=== PATIENT | male | born 1960 | race Caucasian/White ===

== ENCOUNTER 2016-04-14 12:30 | Emergency (ER) | payer BC ==
[2016-04-14 12:47] VITALS: RESP 18
--- NOTE | 2016-04-14 13:10 | ED ---
Dizziness HPI - General Chief Complaint: Dizziness Stated Complaint: Dizziness, lt arm numbness Time Seen by Provider: 04/14/16 13:00 Source: patient, RN notes reviewed Mode of arrival: ambulatory Limitations: no limitations - History of Present Illness Initial Comments: This is a 55-year-old male who states he had the onset yesterday of some dizziness which she got better and then came back. He states that happen with eye movement her head movements. He states he did ever recent ear infection he was treated with Zithromax ear drops and did have appears clean. He presents today with this continued dizziness and some tingling to his left forearm. He denies any focal weakness fevers chills nausea vomiting sweats or other symptoms. He has no history of stroke or head injury. No neck problems that he is aware of. MD Complaint: dizziness, lightheadedness - Related Data Previous Rx's Medication Instructions Recorded Meclizine [Antivert] 25 mg PO TID #20 tab 04/14/16 Allergies Allergy/AdvReac Type Severity Reaction Status Date / Time Penicillins AdvReac Rash/Hives Verified 04/14/16 14:11 Review of Systems ROS Statement: Those systems with pertinent positive or pertinent negative responses have been documented in the HPI. ROS Other: All systems not noted in ROS Statement are negative. Past Medical History Past Medical History: No Reported History History of Any Multi-Drug Resistant Organisms: None Reported Past Surgical History: No Surgical Hx Reported, Heart Catheterization Past Psychological History: No Psychological Hx Reported Smoking Status: Current some day smoker Past Alcohol Use History: Occasional Past Drug Use History: None Reported General Exam - General Exam Comments Initial Comments: This is a well-developed well-nourished awake alert oriented 3 male Limitations: no limitations General appearance: alert, in no apparent distress Head exam: Present: atraumatic, normocephalic, normal inspection Eye exam: Present: normal appearance, PERRL, EOMI. Absent: scleral icterus, conjunctival injection, periorbital swelling ENT exam: Present: normal exam, mucous membranes moist Neck exam: Present: normal inspection. Absent: tenderness, meningismus, lymphadenopathy Respiratory exam: Present: normal lung sounds bilaterally. Absent: respiratory distress, wheezes, rales, rhonchi, stridor Cardiovascular Exam: Present: regular rate, normal rhythm, normal heart sounds. Absent: systolic murmur, diastolic murmur, rubs, gallop, clicks GI/Abdominal exam: Present: soft, normal bowel sounds. Absent: distended, tenderness, guarding, rebound, rigid Extremities exam: Present: normal inspection, full ROM, normal capillary refill. Absent: tenderness, pedal edema, joint swelling, calf tenderness Back exam: Present: normal inspection Neurological exam: Present: alert, oriented X3, CN II-XII intact Psychiatric exam: Present: normal affect, normal mood Skin exam: Present: warm, dry, intact, normal color. Absent: rash Course Vital Signs 04/14/16 04/14/16 04/14/16 12:46 13:56 14:42 Temperature 98.5 F 98.1 F Pulse Rate 76 66 66 Respiratory 18 18 18 Rate Blood Pressure 165/93 169/98 167/88 O2 Sat by Pulse 98 100 97 Oximetry EKG Findings - EKG Results: EKG: interpreted by DILLAN JOHN, sinus rhythm, normal axis, normal QRS, normal ST/ T, no acute changes (EKG shows normal sinus rhythm a 68 appear of 01 38 QRS duration 94 QT/QTC of 46/431 this appears be normal-appearing EKG no changes when compared to an EKG dated 09/13/14) Medical Decision Making - Medical Decision Making Patient is feeling much improved he will be discharged she is follow-up with his doctor return when necessary he'll be placed on Antivert the current presentation is consistent with benign positional vertigo - Lab Data Result diagrams: 04/14/16 13:04 04/14/16 13:04 Lab Results 04/14/16 04/14/16 04/14/16 Range/Units 13:04 13:04 13:04 WBC 5.6 (3.8-10.6) k/uL RBC 4.97 (4.30-5.90) m/uL Hgb 15.2 (13.0-17.5) gm/dL Hct 46.0 (39.0-53.0) % MCV 92.5 (80.0-100.0) fL MCH 30.5 (25.0-35.0) pg MCHC 32.9 (31.0-37.0) g/dL RDW 13.5 (11.5-15.5) % Plt Count 209 (150-450) k/uL Neutrophils % 70 % Lymphocytes % 22 % Monocytes % 5 % Eosinophils % 2 % Basophils % 1 % Neutrophils # 3.9 (1.3-7.7) k/uL Lymphocytes # 1.2 (1.0-4.8) k/uL Monocytes # 0.3 (0-1.0) k/uL Eosinophils # 0.1 (0-0.7) k/uL Basophils # 0.1 (0-0.2) k/uL Sodium 138 (137-145) mmol/L Potassium 4.2 (3.5-5.1) mmol/L Chloride 101 (98-107) mmol/L Carbon Dioxide 28 (22-30) mmol/L Anion Gap 9 mmol/L BUN 13 (9-20) mg/dL Creatinine 0.88 (0.66-1.25) mg/dL Est GFR (MDRD) Af Amer >60 (>60 ml/min/1.73 sqM) Est GFR (MDRD) Non-Af >60 (>60 ml/min/1.73 sqM) Glucose 131 H (74-99) mg/dL Calcium 9.3 (8.4-10.2) mg/dL Magnesium 2.1 (1.6-2.3) mg/dL Total Bilirubin 0.6 (0.2-1.3) mg/dL AST 21 (17-59) U/L ALT 27 (21-72) U/L Alkaline Phosphatase 89 (38-126) U/L Total Creatine Kinase 56 (55-170) U/L CK-MB (CK-2) 0.8 (0.0-2.4) ng/mL CK-MB (CK-2) Rel Index 1.4 Total Protein 7.1 (6.3-8.2) g/dL Albumin 4.2 (3.5-5.0) g/dL TSH 2.620 (0.465-4.680) mIU/L - Radiology Data Radiology results: report reviewed (I did review the imaging and reports no acute findings.), image reviewed Disposition Clinical Impression: Benign paroxysmal positional vertigo Disposition: HOME SELF-CARE Condition: Good Instructions: Dizziness (ED), Benign Paroxysmal Positional Vertigo (ED) Prescriptions: Meclizine [Antivert] 25 mg PO TID #20 tab
[2016-04-14 13:22] LABS: Basophils # (A) 0.1 k/uL (0-0.2); Basophils % (A) 1 %; CHCM 33.7; Eosinophils # (A) 0.1 k/uL (0-0.7); Eosinophils % (A) 2 %; HDW 2.29; HGB 15.2 gm/dL (13.0-17.5); Luc # (Auto) 0.08; Luc % (Auto) 1; Lymphocytes # (A) 1.2 k/uL (1.0-4.8); Lymphocytes % (A) 22 %; MCH 30.5 pg (25.0-35.0); MCHC 32.9 g/dL (31.0-37.0); MCV 92.5 fL (80.0-100.0); Mean Platelet Volume 8.1; Monocytes # (A) 0.3 k/uL (0-1.0); Monocytes % (A) 5 %; Neutrophils # (A) 3.9 k/uL (1.3-7.7); Neutrophils % (A) 70 %; RBC 4.97 m/uL (4.30-5.90); RDW 13.5 % (11.5-15.5); WBC 5.6 k/uL (3.8-10.6); WBC (Perox) 5.46
[2016-04-14 13:33] LABS: ALT 27 U/L (21-72); AST 21 U/L (17-59); Alkaline Phosphatase 89 U/L (38-126); Anion Gap 9 mmol/L; Blood Urea Nitrogen 13 mg/dL (9-20); Calcium 9.3 mg/dL (8.4-10.2); Carbon Dioxide 28 mmol/L (22-30); Chloride 101 mmol/L (98-107); Glucose 131 mg/dL (74-99); Magnesium 2.1 mg/dL (1.6-2.3); Non-African American GFR(MDRD) >60 (>60 ml/min/1.73 sqM); Potassium 4.2 mmol/L (3.5-5.1); Sodium 138 mmol/L (137-145); Total Bilirubin 0.6 mg/dL (0.2-1.3); Total Protein 7.1 g/dL (6.3-8.2)
--- NOTE | 2016-04-14 13:45 | CT ---
EXAMINATION TYPE: CT brain wo con DATE OF EXAM: 04/14/2016 1:35 PM COMPARISON: 01/20/2011 HISTORY: 55-year-old male complains of dizziness and left arm weakness. TECHNIQUE: Examination was done in axial plane without intravenous contrast. Coronal and sagittal reconstructio ns performed. CT DLP: 1058 mGycm Automated exposure control for dose reduction was used. FINDINGS: There is no evidence of acute intracranial hemorrhage, acute ischemic changes, mass, mass-effect, or extra-axial fluid collection. There is no effacement of cerebral sulci or basal subarachnoid cister ns. There is no hydrocephalus. There is no midline shift. [place]-white matter distinction is preserv ed. There is mild cortical atrophy. Mild mucosal thickening in the ethmoid air cells. Mastoid air cells well pneumatized. Orbits and glob es are intact. IMPRESSION: No acute intracranial abnormality seen.
--- NOTE | 2016-04-14 13:47 | XR ---
EXAMINATION TYPE: XR chest 2V DATE OF EXAM: 04/14/2016 1:38 PM COMPARISON: 09/13/2014 HISTORY: Shortness of breath TECHNIQUE: Frontal and lateral views of the chest are obtained. FINDINGS: Scattered senescent parenchymal changes noted. Hyperinflation compatible with COPD. No evidence for infiltrate. No evidence for atelectasis. Heart size is stable. Mediastinal structures are stable and grossly unremarkable. No evidence for hilar prominence. Degenerative changes dorsal spine. IMPRESSION: 1. No evidence for acute pulmonary disease.
[2016-04-14 13:57] VITALS: PULSE 66
[2016-04-14] MEDS ORDERED: MECLIZINE 12.5 MG TAB PO STA (14:11)
[2016-04-14 14:15] LABS: Creatine Kinase MB 0.8 ng/mL (0.0-2.4)
[2016-04-14 14:43] VITALS: BP 167/88; TEMP 98.1
== END 2016-04-14 15:27 | disposition home or self-care (01) ==
LOC: EC 12:30
DX: H81.10 Benign paroxysmal vertigo, unspecified ear (principal); R20.0 Anesthesia of skin; F17.200 Nicotine dependence, unspecified, uncomplicated; Z88.0 Allergy status to penicillin
CPT/HCPCS: 36415; 70450; 71020; 80053; 82550; 82553; 83735; 84443; 85025; 93005; 99284

== ENCOUNTER → 2016-05-06 | Outpatient (CLI) | payer BC ==
--- NOTE | 2016-05-06 16:36 | US ---
EXAMINATION TYPE: US carotid duplex BILAT DATE OF EXAM: 05/06/2016 1:03 PM COMPARISON: prior carotid ultrasound in pacs October 14, 2012 CLINICAL HISTORY: R42 Dizziness. Several episodes of dizziness x 4 wks EXAM MEASUREMENTS: RIGHT: Peak Systolic Velocity (PSV) cm/sec ----- Right CCA: 57.4 ----- Right ICA: 71.2 ----- Right ECA: 77.3 ICA/CCA ratio: 1.2 RIGHT: End Diastole cm/sec ----- Right CCA: 16.8 ----- Right ICA: 26.7 ----- Right ECA: 15.4 LEFT: Peak Systolic Velocity (PSV) cm/sec ----- Left CCA: 73.2 ----- Left ICA: 72.9 ----- Left ECA: 64.4 ICA/CCA ratio: 1.0 LEFT: End Diastole cm/sec ----- Left CCA: 24.8 ----- Left ICA: 28.4 ----- Left ECA: 25.4 VERTEBRALS (direction of flow): Right Vertebral: Antegrade Left Vertebral: Antegrade TECHNOLOGIST IMPRESSION: bilateral intimal thickening, mild plaque at bilateral bulbs, no elevated v elocities There is redemonstration of mild to minimal plaque at bilateral carotid bulbs. Velocity measurements and ratios remain within normal limits bilaterally. IMPRESSION: No hemodynamically significant stenosis is seen in either internal carotid artery. No si gnificant change from prior.
== END | disposition home or self-care (01) ==
LOC: RADUSWWP 12:43
PROVIDERS: ATTEND Family Medicine
DX: R42 Dizziness and giddiness (principal)
CPT/HCPCS: 93880

== ENCOUNTER → 2017-03-16 | Outpatient (CLI) | payer BC ==
--- NOTE | 2017-03-16 12:22 | CT ---
EXAMINATION TYPE: CT abdomen pelvis w con DATE OF EXAM: 03/16/2017 COMPARISON: NONE HISTORY: Left upper abdominal pain CT DLP: 541.3 mGycm Automated exposure control for dose reduction was used. CONTRAST: CT scan of the abdomen pelvis is performed with IV Contrast, patient injected with 100 mL of Omnipaqu e 300. FINDINGS- LUNG BASES-changes of chronic COPD noted.. LIVER/GB- No gross abnormality is appreciated. PANCREAS- No gross abnormality is seen. SPLEEN- No gross abnormality is seen. ADRENALS- No gross abnormality is seen. KIDNEYS/BLADDER- no hydronephrosis or nephrolithiasis. 5 mm hypodensity involving upper pole the left kidney is too small to characterize likely benign. BOWEL- no bowel dilatation. Normal appendix. Stomach is somewhat decompressed limiting evaluation. There is mild thickening of the wall the sigmoid colon which may related complete distention. LYMPH NODES- No greater than 1cm abdominal or pelvic lymph nodes are appreciated. OSSEOUS STRUCTURES-hypertrophic and degenerative changes are seen with severe degenerative disc disea se L5-S1.. OTHER- there is a 3.1 cm infrarenal abdominal aortic aneurysm extending proximal to the bifurcation. Atherosclerotic change and ectasia of the iliac arteries bilaterally greater on the right. There is thickening in the right diaphragmatic marcellus. IMPRESSION- 1. 3.1 cm infrarenal abdominal aortic aneurysm. 2. There is mild thickening the wall the sigmoid colon which may been the basis of incomplete distent ion rather than colitis. No inflammatory changes. Correlate clinically. 3. Thickening of the right diaphragmatic marcellus. This is a nonspecific finding and there can be some va riation within diaphragmatic crural thickness and may represent a normal variant. No prior exams are available to assess chronicity. Recommend short-term follow-up CT of the abdomen confirm stability in 1-2 months.
== END | disposition home or self-care (01) ==
LOC: RADCTMAIN 09:46
PROVIDERS: ATTEND Family Medicine
DX: I71.4 Abdominal aortic aneurysm, without rupture (principal); K63.89 Other specified diseases of intestine; Z88.0 Allergy status to penicillin
CPT/HCPCS: 74177; Q9967

== ENCOUNTER 2018-12-01 10:45 | Day surgery (SDC) | payer BC ==
[2018-11-29 14:46] VITALS: BMI 25.4
[~2018-12-01 10:45] MED LIST: LACTATED RINGERS 1,000 ML IV SCH
[2018-12-01 11:09] VITALS: TEMP 98
[2018-12-01] MEDS ORDERED: LACTATED RINGERS 1,000 ML IV ONE ×2 (11:09→12:10)
[2018-12-01] MEDS ORDERED: LIDOCAINE 1% 20 ML VIAL (10MG/ML) FOR IV START INTRADERMA ONE (11:10)
[2018-12-01] MEDS ORDERED: LIDOCAINE 1% INJ 10MG/ML (20 ML MDV) ONE (11:37)
[2018-12-01] MEDS ORDERED: PROPOFOL 10 MG/ML 20 ML VIAL IV ONE (11:37)
--- NOTE | 2018-12-01 12:23 | P.PCN ---
Date of Procedure: 12/01/18 Description of Procedure: BRIEF HISTORY: Patient is a 58-year-old pleasant male scheduled for an elective colonoscopy as a part of evaluation of rectal bleeding. Patient reports last colonoscopy was in 2017. He has had intermittent rectal bleeding and is here for further evaluation. PROCEDURE PERFORMED: Colonoscopy with polypectomy. PREOPERATIVE DIAGNOSIS: Rectal bleeding. ESTIMATED BLOOD LOSS: Minimal. IV sedation per Anesthesia. PROCEDURE: After informed consent was obtained, the patient, was brought into the endoscopy unit. IV sedation was administered by Anesthesia under continuous monitoring. Digital rectal examination was normal. Initially the Olympus CF-190 flexible video colonoscope was then inserted in the rectum, gradually advanced into the cecum without any difficulty. Careful examination was performed as the scope was gradually being withdrawn. Ileocecal valve and the appendiceal orifice were visualized and appeared normal. Prep was excellent. Mucosa of the cecum, ascending colon, transverse colon, descending colon, sigmoid colon, and rectum appeared normal. Diminutive polyp measuring 2 mm removed from the transverse colon with cold forceps. Diminutive 1 mm sigmoid polyp removed with cold forcep polypectomy. Diminutive sessile 2 mm rectal polyp removed with cold forcep polypectomy. Retroflexion was performed in the rectum and no lesions were seen, with mild internal hemorrhoids noted. The patient tolerated the procedure well. IMPRESSION: 3 diminutive polyps removed from the transverse colon sigmoid colon and rectum with cold forcep polypectomy. Low-grade internal hemorrhoids. RECOMMENDATIONS: Findings of this examination were discussed with the patient and his family. Okay to resume diet. Okay to resume medications. Anticipate repeat colonoscopy in 3-5 years pending pathology from polypectomies. If patient has further rectal bleeding would recommend a local care with topical steroid, stool softener and sitz baths..
[2018-12-01 12:28] VITALS: BP 135/84; PULSE 72; RESP 16
== END 2018-12-01 12:40 | disposition home or self-care (01) ==
LOC: ORWHC2ENDO 10:45
PROVIDERS: ATTEND Internal Medicine
DX: K63.5 Polyp of colon (principal); D12.8 Benign neoplasm of rectum; K64.8 Other hemorrhoids; F17.210 Nicotine dependence, cigarettes, uncomplicated; Z79.899 Other long term (current) drug therapy; Z98.890 Other specified postprocedural states; Z88.0 Allergy status to penicillin
CPT/HCPCS: 88305; 45380; J2001; J2704; 45385

== ENCOUNTER 2024-03-15 07:39 | Day surgery (SDC) | payer BC ==
[~2024-03-15 07:39] MED LIST changes: +HYDROmorphone 0.5 MG/0.5 ML SYRINGE IVP PRN; -LACTATED RINGERS 1,000 ML IV SCH; +LIDOCAINE 1% (10MG/ML) FOR IV START INTRADERMA PRN; +droPERidol 5 MG/2 ML VIAL IVP ONE
[2024-03-15] MEDS: IV FLUID CONTINUATION 1,000 ML IV ONE (07:59)
[2024-03-15] MEDS: OXYMETAZOLINE 0.05% NASL SPRAY 1 SPRAY BOTTLE EA NOSTRIL PRN (08:08)
[2024-03-15] MEDS: LACTATED RINGERS 1,000 ML IV SCH (08:14)
[2024-03-15] MEDS: ONDANSETRON 4 MG/2 ML VIAL IVP ONE (08:23)
[2024-03-15] MEDS: DEXAMETHASONE SOD PHOSPHATE 4 MG/ML 1 ML VIAL IV ONE (08:25)
[2024-03-15] MEDS: FAMOTIDINE 20 MG/2 ML VIAL IV PRN (08:28)
[2024-03-15 08:34] LABS: Glucose,Whole Blood 93 mg/dL (70-110)
[2024-03-15] MEDS ORDERED: LIDOCAINE 1% INJ 10MG/ML (20 ML MDV) ONE (09:10)
[2024-03-15] MEDS ORDERED: SUCCINYLCHOLINE CHLORIDE 200 MG/10 ML VIAL IV ONE (09:10)
[2024-03-15] MEDS ORDERED: PROPOFOL 10 MG/ML 20 ML VIAL IV ONE (09:10)
[2024-03-15] MEDS ORDERED: fentaNYL (PF) 50 MCG/ML 2 ML AMP ONE (09:10)
[2024-03-15] MEDS ORDERED: ePHEDrine 50 MG/ML 1 ML VIAL ONE (09:10)
[2024-03-15] MEDS ORDERED: MIDAZOLAM 2 MG/2 ML VIAL ONE (09:10)
[2024-03-15] MEDS: LIDOCAINE 1%-EPI 1:100,000 20 ML VIAL SUBMUCOSAL ONE ×2 (09:15)
[2024-03-15] MEDS: metroNIDAZOLE-NS PMX 500 MG in SALINE 1 100ML.BAG IVPB PRN (09:15)
[2024-03-15] MEDS: CLINDAMYCIN 600 MG in DEXTROSE 5% IN WATER 50 ML IVPB PRN (09:31)
[2024-03-15] MEDS: BACITRACIN ZINC 500 UNIT/GM OINT 28.4 GM TUBE TOPICAL ONE ×2 (09:33→10:06)
--- NOTE | 2024-03-15 10:20 | P.OP ---
Date of Procedure: 03/15/24 Preoperative Diagnosis: deviated nasal septum Inferior turbinate hypertrophy Chronic sinusitis Postoperative Diagnosis: same Procedure(s) Performed: septoplasty Outfracture and submucous resection inferior turbinates Bilateral endoscopic sinus surgery including bilateral maxillary antrostomy with removal of tissue from maxillary sinuses and bilateral lesley bullectomy Surgeon: Ricky Stovall Estimated Blood Loss (ml): 10 Pathology: other (nasal septal bone and cartilage and sinus contents) Condition: stable Disposition: PACU Indications for Procedure: is a 63-year-old white male with difficulties with chronic nasal airway obstruction and congestion bilaterally is nonseasonal. This did not improve with medical management. He has also had snoring although no sleep apnea. He also had recurrent/chronic sinusitis with some abnormalities noted on CT of the sinuses Operative Findings: nasal septum deviated to the left with inferior turbinate hypertrophy bilaterally obstruction of the ostiomeatal complexes bilaterally with small polyps in the maxillary sinuses and bilateral lesley bullosa cells Description of Procedure: The patient was brought into the operative suite and placed in a supine position. The patient underwent induction of general anesthesia with oral endotracheal intubation without difficulty. The patient was prepped and draped in the usual aseptic fashion with the orbits in the operating field for monitoring to the case and the computed tomography scan was on the computer screen for review throughout the case. 1% lidocaine with 1 :100,000 epinephrine was infused submucosally into both sides of the nasal septum as well as the lateral nasal wall and anterior tips of the middle turbinates. While this was taking vasoconstrictive effect the inferior turbinates were infractured with [place] elevator and partial submucous resection of the inferior turbinates was performed with a portion of the submucosal soft tissue and the inferior turbinate bone removed with Coblation device. The inferior turbinates were then outfractured with the [place] elevator. A left hemitransfixion incision was then made with the mucoperichondrial and mucoperiosteal flap on the left elevated. The bony cartilaginous junction was disarticulated and the mucoperiosteal flap on the right was elevated. Bony nasal septal deformities were removed with Angel forceps and an inferior cartilaginous strip was removed leaving a full 1.5 cm caudal strut. Checking intranasally this corrected the nasoseptal deformities and the hemitransfixion incision was closed with a running 4-0 chromic suture. Full 0 endoscopic examination is performed bilaterally. Beginning on the left, the middle turbinate was medialized. The maxillary ostium was located with a ballpoint probe and an infundibulotomy was performed followed by uncinectomy. The maxillary antrostomy was enlarged at the expense of the anterior and posterior fontanelle taking care anteriorly not to injure the lacrimal bone. The maxillary sinus was evaluated with 30 and 70 endoscope .[Abnormal appearing tissue was removed from the maxillary sinus]. Anterior and posterior ethmoidectomy were then performed from anterior to posterior to the level of the skull base. The roof of the anterior ethmoid air cells were then cleaned from posterior to anterior using up-biting Blakesley forceps. there were lesley bullosa cells noted bilaterally and therefore the lateral one half of the middle turbinate was performed with the lesley bullectomy with microdebrider. Attention was then turned to the right where the procedures were followed as they had been on the left including lesley bullectomy, maxillary antrostomy with removal of tissue from maxillary sinus anterior posterior ethmoidectomy. [Nasopore nasal dressing was placed in the middle meatus bilaterally under direct visualization]. Bilateral Santos airway splints coated with bacitracin ointment were placed and sutured transseptally with a 4-0 nylon suture. The patient was suctioned in oral gastric fashion and was allowed to emerge from general anesthesia having tolerated procedure well and was extubated in the operating suite and transferred to the postoperative recovery area in satisfactory condition.
[2024-03-15 10:26] VITALS: TEMP 97.2
[2024-03-15 11:38] VITALS: BP 143/86; PULSE 64; RESP 16
== END 2024-03-15 12:20 | disposition home or self-care (01) ==
LOC: OR 07:39
PROVIDERS: ATTEND Otolaryngology
DX: J34.2 Deviated nasal septum (principal); J34.3 Hypertrophy of nasal turbinates; J34.89 Other specified disorders of nose and nasal sinuses; J32.0 Chronic maxillary sinusitis; J32.2 Chronic ethmoidal sinusitis; J31.0 Chronic rhinitis; R43.9 Unspecified disturbances of smell and taste; R06.83 Snoring; F41.9 Anxiety disorder, unspecified; R42 Dizziness and giddiness; I10 Essential (primary) hypertension; E78.5 Hyperlipidemia, unspecified; Z79.899 Other long term (current) drug therapy; Z87.891 Personal history of nicotine dependence; Z88.0 Allergy status to penicillin; Z88.1 Allergy status to other antibiotic agents
CPT/HCPCS: 31267; 31240; 30520; 30140; J2250; J0330; J1100; J2405; J2003; J3010; J3490; J2704; J0736; J1836; 88300; 88305